=== PATIENT | female | born 1965 | race Two or more races ===

== ENCOUNTER 2017-03-08 18:28 | Emergency (ER) | payer OTHER ==
[~2017-03-08] VITALS: Ht 162.6 cm; Wt 68.0 kg
[2017-03-08 18:45] VITALS: BP 126/78
[2017-03-08] MEDS ORDERED: Sodium Chloride 500ML 500 ML IV ONE (18:45)
[2017-03-08] MEDS ORDERED: DiphenhydrAMINE 50mg/ml Inj IVP ONE (18:45)
[2017-03-08] MEDS ORDERED: Solu-MEDROL 125mg Inj IVP ONE (18:45)
[2017-03-08] MEDS ORDERED: DIPHENHYDRAMINE25 M1 ORAL (19:44)
[2017-03-08] MEDS ORDERED: RANITIDINE HCL150 MG ORAL (19:44)
[2017-03-08] MEDS ORDERED: PREDNISONE20 MG ORAL (19:44)
[2017-03-08] MEDS ORDERED: EPIPEN 2-P0.3 MG/0.3 IM (19:44)
[2017-03-08 19:52] VITALS: BP 126/78
--- NOTE | 2017-03-10 07:16 | Emergency Room Report ---
History of Present Illness General Chief Complaint: Allergic Reaction Source: Patient Present Illness HPI 52-year-old female presents ED for evaluation. Patient brought in by EMS for allergic reaction. She states that shortly after ingesting Tessalon Perles she developed tightness in her throat. Started proximately 20 minutes after ingesting. States she was prescribed Tessalon Perles, Z-Denis and cough syrup for a throat infection by her PMD. States she does have multiple drug and food allergies. States that she took the Z-Denis in the morning and had no reaction and took a Z-Denis yesterday. States is the first time she was trying the Tessalon Perles. denies tongue swelling. Denies rash. Was not given medication by EMS. She is supposed to carry EpiPen but does not. No other aggravating or relieving factors. Denies any other associated symptoms Allergies: Coded Allergies: PENICILLINS (Unverified Allergy, Unknown, 03/08/17) SULFA (SULFONAMIDE ANTIBIOTICS) (Unverified Allergy, Unknown, 03/08/17) Uncoded Allergies: PENICILLIN (Allergy, Unknown, 03/08/17) SULFA (Allergy, Unknown, 03/08/17) Patient History Past Medical History: none Past Surgical History: none Pertinent Family History: none Social History: Denies: smoking, alcohol use, drug use Now: No Immunizations: UTD Reviewed Nursing Documentation: PMH: Agreed, PSxH: Agreed Nursing Documentation-PMH Past Medical History: No Stated History Review of Systems All Other Systems: negative except mentioned in HPI Physical Exam Vital Signs Date Time Temp Pulse Resp B/P (MAP) Pulse Ox O2 Delivery O2 Flow Rate FiO2 03/08/17 18:22 97.0 95 20 143/69 98 Room Air Sp02 EP Interpretation: reviewed, normal General Appearance: no apparent distress, alert, GCS 15, non-toxic Head: normocephalic, atraumatic Eyes: bilateral eye normal inspection, bilateral eye PERRL ENT: hearing grossly normal, normal pharynx, no angioedema, normal voice Neck: full range of motion, supple/symm/no masses, other - no stridor Respiratory: chest non-tender, lungs clear, normal breath sounds, speaking full sentences Cardiovascular #1: regular rate, rhythm, no edema Cardiovascular #2: 2+ carotid (R), 2+ carotid (L), 2+ radial (R), 2+ radial (L) , 2+ dorsalis pedis (R), 2+ dorsalis pedis (L) Gastrointestinal: normal bowel sounds, non tender, soft, non-distended, no guarding, no rebound Rectal: deferred Genitourinary: normal inspection, no CVA tenderness Musculoskeletal: back normal, gait/station normal, normal range of motion, non- tender Neurologic: alert, oriented x3, responsive, motor strength/tone normal, sensory intact, speech normal Psychiatric: judgement/insight normal, memory normal, mood/affect normal, no suicidal/homicidal ideation Reflexes: 3+ bicep (R), 3+ bicep (L), 3+ tricep (R), 3+ tricep (L), 3+ knee (R) , 3+ knee (L) Skin: normal color, no rash, warm/dry, well hydrated Lymphatic: no adenopathy Medical Decision Making Diagnostic Impression: Primary Impression: Allergic reaction Qualified Codes: T78.40XA - Allergy, unspecified, initial encounter ER Course Hospital Course 52-year-old female presents to ED complaining of throat tightness after ingesting tessalon perles. Has multiple food drug allergies Differential diagnoses include: allergic reaction, angioedema Clinical course Patient placed on stretcher. monitor tech. After initial history and physical, I ordered Solu-Medrol, Benadryl, pepcid, IV fluids Upon reassessment patient states she feels better. Clinical picture does appear consistent with allergy to the Tessalon Perles. Will encourage continued course of steroids, Benadryl for 5 days. Does not appear that she has any reaction to the Z-Denis so will encourage to complete Z-Denis Will also prescribe an EpiPen i. I feel this is a highly complex case requiring extensive working including EKG/Rhythm strip, Xray/CT/US, Blood/urine lab work, repeat exams while in ED, and administration of strong opiates/narcotics for pain control, admission to hospital or close patient follow up. Diagnosis - allergic reaction Stable and discharged to home with prescriptions for Zantac, prednisone, Benadryl, epipen. Followup with PMD. Return to ED if symptoms recur or worsen Last Vital Signs Date Time Temp Pulse Resp B/P (MAP) Pulse Ox O2 Delivery O2 Flow Rate FiO2 03/08/17 19:52 97.0 80 16 126/78 100 Room Air Status: improved Disposition: HOME, SELF-CARE Condition: Stable Scripts Epinephrine (Epipen 2-Denis) 0.3 Mg/0.3 Ml Auto.injct 0.3 MG IM ONCE, #2 EA Prov: LIZ MULLEN M.D. 03/08/17 Prednisone* (PREDNISONE*) 20 Mg Tablet 40 MG ORAL DAILY for 5 Days, #10 TAB Prov: LIZ MULLEN M.D. 03/08/17 Ranitidine Hcl* (ZANTAC*) 150 Mg Tablet 150 MG ORAL TWICE A DAY for 5 Days, #30 TAB Prov: LIZ MULLEN M.D. 03/08/17 Diphenhydramine Hcl* (DIPHENHYDRAMINE HCL*) 25 Mg Capsule 25 MG ORAL Q6H Y for Itching for 5 Days, #30 CAP 0 Refills Prov: LIZ MULLEN M.D. 03/08/17 Referrals: NOT CHOSEN TREVOR/,REFERRING (PCP) Patient Instructions: Drug Allergy LIZ MULLEN M.D. Mar 10, 2017 07:16
== END 2017-03-08 19:53 | disposition home or self-care (01) ==
LOC: EDBD 18:28 → EMR 18:40
DX: T78.40XA Allergy, unspecified, initial encounter (principal); Z88.0 Allergy status to penicillin; Z88.2 Allergy status to sulfonamides; X58.XXXA Exposure to other specified factors, initial encounter; Y92.9 Unspecified place or not applicable
CPT/HCPCS: 96361; 96374; 96375; 99284; J1200; J2930; J7040; S0028